=== PATIENT | female | born 1985 ===

== ENCOUNTER 2022-03-05 17:38 | Outpatient (REF) | payer OTHER, SELFPAY ==
[2022-03-07 11:58] LABS: COVID-19 RT-PCR UVMMC Result Negative (Negative)
== END 2022-03-05 17:39 | disposition home or self-care (01) ==
LOC: LBN 17:38
PROVIDERS: Visit Provider Physician Assistant Medical
DX: Z20.822 Contact with and (suspected) exposure to COVID-19 (principal); J06.9 Acute upper respiratory infection, unspecified
CPT/HCPCS: U0003